=== PATIENT | male | born 1945 | race African-American/Black ===

== ENCOUNTER 2016-05-26 04:09 | Inpatient (IN) | payer MEDICARE, OTHER ==
--- NOTE | ~2016-05-26 | CN ---
Consultation Report [facility] [address] [place]. [address] NAME: LAURYN BRYAN : 43 STATUS : DIS IN PAT#: [id number] AGE: 70 ADM/REG DATE : 05/26/16 MR#: [id number] REPORT SERV DATE: 05/26/16 DICTATED BY: GILBERTO DEMPSEY DATE: 05/26/16 REPORT STATUS : Draft TRANSCRIBED BY: MODL DATE: 05/26/16 CARDIOVASCULAR CONSULTATION DATE OF CONSULTATION: 05/26/2016 INDICATION: Dyspnea and elevated troponin. HISTORY OF PRESENT ILLNESS: Mr. Bryan is a 70-year-old man with a history of morbid obesity and end-stage renal disease, on hemodialysis. He has a history of chronic diastolic congestive heart failure. He has had several admissions over the last few months for symptoms of dyspnea. Over the last week, his dyspnea has worsened and today he developed weakness and a cold sweat while taking a shower. He presented to the emergency room where he was found to be hypotensive with systolic blood pressures 80/60. He was admitted to the Medical Intensive Care Unit where he is currently on supplemental oxygen and IV Levophed for blood pressure support. I reviewed an echocardiogram in person performed this afternoon, which demonstrated a severely dilated RV and preservation of the RV apex consistent with Corea sign, which is suggestive of an acute pulmonary embolus. In reviewing echo images from March of 2016, RV enlargement and global systolic dysfunction is new. LV systolic function is preserved. There is moderate concentric left ventricular hypertrophy. PAST MEDICAL HISTORY: 1. End-stage renal disease, on hemodialysis. 2. Chronic diastolic congestive heart failure. 3. Obstructive sleep apnea. SOCIAL HISTORY: He does not smoke or drink alcohol. FAMILY HISTORY: There is no family history of early coronary artery disease. REVIEW OF SYSTEMS: A complete review of systems was obtained, which is negative in detail except as mentioned above in the HPI. PHYSICAL EXAMINATION: VITAL SIGNS: Blood pressure 80/60, heart rate of 120, respiratory rate of 22. GENERAL: Comfortable in no acute distress. HEENT: Anicteric. No xanthelasma. Lips without cyanosis. NECK: No JVD. Carotids 2+ and symmetric. No carotid bruits. LUNGS: CTA bilaterally. No wheezes or rhonchi. No accessory muscle use. COR: Tachycardic. Normal S1 and S2. ABD: Soft, nontender, nondistended. Normal bowel sounds. No abdominal bruits. EXT: No clubbing, cyanosis or edema 2+ and symmetric distal pulses. Consultation Report [place] [address] [place]. [address] NAME: LAURYN BRYAN : 43 STATUS : DIS IN PAT#: [id number] AGE: 70 ADM/REG DATE : 05/26/16 MR#: [id number] REPORT SERV DATE: 05/26/16 DICTATED BY: GILBERTO DEMPSEY DATE: 05/26/16 REPORT STATUS : Draft TRANSCRIBED BY: AMADOU DATE: 05/26/16 SKIN: Warm. Dry. No venous stasis changes. MS: No kyphosis. NEURO/PSYCH: Oriented x3. No anxiety or depression. LABORATORY STUDIES: Potassium of 5.0 and creatinine of 11. Hematocrit of 39.8. I reviewed his echocardiogram as described above. Troponin 0.73 and 1.29. EKG: A 12-lead EKG shows sinus tachycardia. Mild ST depressions are noted in the lateral precordial leads. Mild ST elevation is noted approximately 1 mm in V1 only. IMPRESSION: This is a 70-year-old patient on hemodialysis for end-stage renal disease who presents with worsening symptoms of dyspnea and in particular hypotension today. His echocardiogram is consistent with an acute pulmonary embolus with evidence of severe RV enlargement, severe RV systolic dysfunction, and preservation of RV function at the apex consistent with Corea sign. The patient is currently being attended to by the Critical Care Medicine Team. Plans are for intubation and CT scan of the chest. Possible lytics are being planned for likely acute pulmonary embolus. GINO/AMADOU Gilberto Dempsey M.D. / [id number] CC: Mao Hicks MD
--- NOTE | ~2016-05-26 | HP ---
History And Physical [place] [id number] [place]. [address] NAME: LAURYN BRYAN : 44 STATUS : ADM IN [facility]#: [id number] AGE: 70 ADM/REG DATE : 05/26/16 MR#: [id number] REPORT SERV DATE: 05/26/16 DICTATED BY: ADI العراقي DATE: 05/26/16 REPORT STATUS : Draft TRANSCRIBED BY: MODCharanjit DATE: 05/26/16 DATE OF ADMISSION: 05/26/2016 CHIEF COMPLAINT: Acute on chronic hypotension. HISTORY OF PRESENT ILLNESS: The patient is a 70-year-old male with significant past medical history of chronic hypotension, presented with generalized weakness and lightheadedness in the setting of acute on chronic hypotension. The patient has had two similar presentations in 01/2016. The patient states at that time he does dialysis on Mondays, Wednesdays, and Fridays. Reviewing his dialysis pressures on 05/24/2016, he was noted to have systolic blood pressures in the 140s to 180s. The patient is on midodrine 10 mg p.o. t.i.d. The patient stated that he takes his midodrine on a twice a day basis. He states he takes the equivalent of 30 mg in one day. The patient states last night he started getting weak and lightheaded. He went to the bathroom and threw up. There is a question if there are any coffee-grounds. His hemoglobin is noted to be 13. He denies any bright red blood per rectum or black stools or abdominal pain. The patient denies any loss of consciousness, chest pain, palpitations, shortness of breath, nausea, vomiting, or diarrhea. He denies any fevers, chills, upper respiratory infection, or lower respiratory infection symptoms. He does not have any wounds or rash. The patient denies any chest pain, palpitations, or shortness of breath. He is not on any vasodilators in reviewing his medication. He does have a past medical history of sleep apnea. The patient was found on presentation to have systolic blood pressures in the 60s, placed on Levophed, and his systolic blood pressures are currently in the 90s. His dry weight is approximately 128 to 129 kg. He is noted to have a weight of 130 kg upon presentation. Chest x-ray showed no infiltrates, effusions, or pneumothorax. Troponin is 0.73. LFTs and total bilirubin are within normal limits. Bicarb CO2 on his BNP was 24. BUN and creatinine are 51 and 11.1. Calcium is 9.6. The patient does not have a history of hypothyroidism. The patient has had echoes on his previous admissions that showed normal ejection fraction. No pericardial effusion. EKG shows sinus tachycardia. PAST MEDICAL/PAST SURGICAL HISTORY: 1. End-stage renal disease, on Mondays, Wednesdays, and Fridays of DCI moderately. 2. Chronic hypotension, on midodrine. 3. Right lower lobe consolidation with a biopsy completed in 03/2016, which revealed just calcification without a malignancy. 4. Chronic diastolic CHF. 5. Venous insufficiency. 6. Gout. 7. Toe infection. 8. Sleep apnea. 9. Restrictive lung disease?.. SOCIAL HISTORY: He is . No tobacco, alcohol, or drugs. FAMILY MEDICAL HISTORY: No known kidney disease. History And Physical [address] [address] NAME: LAURYN BRYAN : 44 STATUS : ADM IN [facility]#: [id number] AGE: 70 ADM/REG DATE : 05/26/16 MR#: [id number] REPORT SERV DATE: 05/26/16 DICTATED BY: ADI العراقي DATE: 05/26/16 REPORT STATUS : Draft TRANSCRIBED BY: AMADOU DATE: 05/26/16 REVIEW OF SYSTEMS: Complete review of systems is negative, otherwise as stated in the HPI. HOME MEDICATIONS: Reviewed. 1. Allopurinol 100 mg daily. 2. Lipitor 20 mg daily. 3. Multivitamin. 4. Gabapentin 600 mg t.i.d. 5. Hydroxyzine. 6. Fosrenol 1000 mg two tablets t.i.d. with meals. 7. Midodrine 5 mg t.i.d. 8. Lortab 5/325 mg p.o. q.6 hours. 9. Trazodone. PHYSICAL EXAMINATION: VITAL SIGNS: Temperature is 97.8, pulse is in the 100s, blood pressure is in the 90s, on Levophed drip 6 mcg/min. GENERAL: He is in no apparent distress. PSYCHIATRIC: Appropriate mood and affect. NEUROLOGIC: He is alert and oriented x3. Gross motor intact. SKIN: No petechiae or purpura. NECK: No JVP. Trachea is midline. No lymphadenopathy. CARDIOVASCULAR: Regular rate and rhythm. No gallops, rubs, or murmurs appreciated. RESPIRATORY: Clear to auscultation bilaterally. ABDOMEN: Soft, nontender, nondistended. EXTREMITIES: No peripheral edema. VASCULAR: +2 radial pulses bilaterally. LABORATORY DATA: Sodium is 142, potassium is 5.0, chloride is 101, bicarb is 24, BUN is 51, creatinine is 11.1, albumin is 2.9, calcium is 9.6, total bilirubin 0.5, alkaline phosphatase 121, AST is 44, ALT is 70, troponin is 0.73. White blood cell count is 10.3, hemoglobin is 13, and platelets are 132. IMAGING: Echocardiogram in 01/2016 showed an ejection fraction of 60%. Chest x-ray on 05/26/2016, no infiltrates, no effusions, no pneumothorax. ASSESSMENT: 1. Acute on chronic hypotension of unclear etiology. Structural heart disease needs to be a concern even though the patient has had echocardiogram completed in the past, which has not shown any evidence of valvular disease, pericardial effusion, or decreased left ventricular ejection fraction. Adrenal insufficiency, amyloidosis, and pulmonary embolism are within the differential diagnosis. Occult sepsis may be a possible etiology. The patient does not appear hypovolemic. He does not have a known past medical history of cirrhosis. 2. Chronic diastolic congestive heart failure. 3. End-stage renal disease. History And Physical [address] [address] NAME: LAURYN BRYAN : 44 STATUS : ADM IN [facility]#: [id number] AGE: 70 ADM/REG DATE : 05/26/16 MR#: [id number] REPORT SERV DATE: 05/26/16 DICTATED BY: ADI العراقي DATE: 05/26/16 REPORT STATUS : Draft TRANSCRIBED BY: AMADOU DATE: 05/26/16 PLAN: 1. Labs to evaluate for adrenal insufficiency, amyloidosis, and myocardial infarction. 2. Echocardiogram to evaluate for structural heart disease. 3. Telemetry to monitor cardiac arrhythmia. 4. He has a lower extremity ultrasound to evaluate for DVT. 5. Right upper quadrant abdominal ultrasound to evaluate for cirrhosis. 6. Continue midodrine. 7. Continue Levophed. 8. Give vancomycin and Levaquin prophylactically. Followup blood cultures. Imaging to see if occult sepsis arise. 9. Hemodialysis is planned for tomorrow. SGG/MODL Adi العراقي M.D. / [id number] CC: Mao Hicks MD NO PCP
--- NOTE | ~2016-05-26 | DS ---
Discharge Summary [facility] [address] [place]. [address] NAME: LAURYN BRYAN : 43 STATUS : DIS IN PAT#: [id number] AGE: 70 ADM/REG DATE : 05/26/16 MR#: [id number] REPORT SERV DATE: 05/27/16 DICTATED BY: ADI VIRGEN DATE: 05/26/16 REPORT STATUS : Draft TRANSCRIBED BY: MODL DATE: 05/26/16 ADMISSION DATE: 05/26/2016 DISCHARGE DATE: 05/26/2016 DISCHARGE DIAGNOSES: 1. Suspected severe acute pulmonary embolism. 2. Acute on chronic hypotension. 3. History of chronic diastolic congestive heart failure. 4. End-stage renal disease. CONSULTATIONS: Critical Care, Dr. Clyde Wu. PROCEDURES: 1. Intubation for mechanical ventilation. 2. Echocardiogram completed on 05/26/2016 that revealed an estimated LV ejection fraction of 65% with moderate concentric LVH, mild to moderate RV enlargement with decreased systolic function. There is a hyperdynamic apex considered for pulmonary embolism on the differential. Aortic valvular sclerosis without stenosis and moderate pulmonary hypertension with RVSP of 50 mmHg. When compared to the previous echocardiogram completed on 04/07/2016 RV was now dilated which was from the new clinical feature. HISTORY OF PRESENT ILLNESS: The patient is a 70-year-old male with significant past medical history of chronic hypertension, JENNIFER, end-stage renal disease, presented with generalized weakness and lightheadedness in the setting of acute on chronic hypotension. The patient is noted to be on midodrine as an outpatient. The patient was noted to have blood pressures in the 60s to 80s on presentation to the emergency department. He was started on Levophed drip. Systolic blood pressures improved into the 90s. HOSPITAL COURSE: The patient was admitted for acute on chronic hypotension with concerns of possible structural heart disease, adrenal insufficiency, pulmonary embolism, and amyloidosis. Stat echocardiogram was obtained with results noted above. Critical Care was consulted. The patient was to be intubated and placed on mechanical ventilation to be transported to CT scan for evaluation and management of a strongly suspected acute pulmonary embolism. The patient was placed on a heparin drip. In order to determine the need for vascular intervention of a pulmonary embolus in the CTA had to be completed first. Unfortunately, shortly after being intubated the patient went into PEA arrest. He was coded for approximately 45 minutes. He was given tPA during the code due to our concerns of severe acute pulmonary embolism. Unfortunately, the patient did not survive this significant event. The family was called during the code, was reportedly asleep by staff. I was able to contact the daughter who informed the family who presented near to the end of this code. Family was informed and sympathies expressed due to his loss. GEORGETTE/AMADOU Discharge Summary [address] [place]. [address] NAME: LAURYN BRYAN : 43 STATUS : DIS IN PAT#: [id number] AGE: 70 ADM/REG DATE : 05/26/16 MR#: [id number] REPORT SERV DATE: 05/27/16 DICTATED BY: ADI VIRGEN DATE: 05/26/16 REPORT STATUS : Draft TRANSCRIBED BY: AMADOU DATE: 05/26/16 Adi Virgen M.D. / [id number] CC: Mao Hicks MD
--- NOTE | ~2016-05-26 | OP ---
Record Of Operation [facility] [address] [place]. [address] NAME: LAURYN BRYAN : 43 STATUS : DIS IN PAT#: [id number] AGE: 70 ADM/REG DATE : 05/26/16 MR#: [id number] REPORT SERV DATE: 05/26/16 DICTATED BY: TYLER WU DATE: 05/26/16 REPORT STATUS : Draft TRANSCRIBED BY: MODL DATE: 05/26/16 DATE OF PROCEDURE: PROCEDURE: Intubation. INDICATION: Respiratory distress. DESCRIPTION OF PROCEDURE: Pre-oxygenated with 100% oxygen and monitored by blood pressure, oximetry, 20 mg of etomidate, use #8 endotracheal tube placed under direct laryngoscope vision to 22 cm. Tube seen to enter between cords. Confirmed by end-tidal CO2 monitor. Good breath sounds bilaterally. Sat 100%, post chest x-ray will be obtained. MIHAELA/AMADOU Tyler Wu M.D. / [id number] CC: Mao Hicks MD
--- NOTE | ~2016-05-26 | CN ---
Consultation Report [facility] [address] [place]. [address] NAME: LAURYN BRYAN : 43 STATUS : DIS IN PAT#: [id number] AGE: 70 ADM/REG DATE : 05/26/16 MR#: [id number] REPORT SERV DATE: 05/29/16 DICTATED BY: TYLER WU DATE: 05/26/16 REPORT STATUS : Draft TRANSCRIBED BY: MODL DATE: 05/26/16 CONSULTATION DATE OF CONSULTATION: 05/26/2016 TIME: 1415 hours. Seen in Medical ICU, bed number 11. HISTORY OF PRESENT ILLNESS: Mr. Bryan is a 70-year-old white male with significant past history including chronic end-stage renal disease, on dialysis. He has a history of chronic hypotension for which he takes midodrine. He presents with generalized weakness and lightheadedness in the setting of acute on chronic hypotension. The patient had similar episodes apparently last year in January. The patient takes midodrine 10 mg p.o. t.i.d. He reported to Dr. Virgen, that the night before admission, he began getting weak and lightheaded. He went to the bathroom and threw up. Hemoglobin was 13. He denies any bright red bleeding or black stools. No loss of consciousness. No chest pain or palpitation, shortness of breath or diarrhea. Denies fever, chills, or respiratory issues. No chest pain. He does have a past medical history of sleep apnea. He had required Levophed on entry because of his hypotension. His dry weight in past was 120 kilos. BUN and creatinine are 51 and 11. His bicarb is 24 on his BMP. History of hypothyroidism in past. PAST MEDICAL HISTORY: End-stage renal disease with three times a week dialysis; chronic hypotension, on midodrine, right lower lobe consolidation, biopsy in 2017 revealed calcification without malignancy; chronic diastolic heart failure; venous insufficiency; gout; toe infection; sleep apnea; restrictive lung disease. He is . No children. No known prior kidney disease. HOME MEDICATIONS: Include allopurinol 100 daily, Lipitor 20, multivitamin, Neurontin 600 t.i.d., hydroxyzine, Fosrenol 1000 mg t.i.d. with tablets midodrine 5 t.i.d., Lortab 5/325, trazodone. PHYSICAL EXAMINATION: VITAL SIGNS: On examination, his pressures is about 120/70, on Levophed, this is weight- based. His saturation was 89 to 92, heart rate was 140. GENERAL: The patient is awake, but using accessory muscles of respiration. He is responsive. HEENT: Head was normocephalic. Sclerae and conjunctivae are clear. NECK: Supple. CHEST: Decreased breath sounds bilaterally. CARDIAC: S1, S2. Tachycardic. ABDOMEN: Slightly distended, nontender. No masses or organomegaly. EXTREMITIES: 2+ to 3+ edema. The pulses are palpable. Consultation Report [place] [id number] [place]. [address] NAME: LAURYN BRYAN : 43 STATUS : DIS IN PAT#: [id number] AGE: 70 ADM/REG DATE : 05/26/16 MR#: [id number] REPORT SERV DATE: 05/29/16 DICTATED BY: TYLER WU DATE: 05/26/16 REPORT STATUS : Draft TRANSCRIBED BY: AMADOU DATE: 05/26/16 The patient had an echocardiogram done that showed Corea sign. Also, he has a dilated RV which was a change from his previous echo in March this year. Chronic diastolic heart failure, end-stage renal disease. Concern for pulmonary embolism is present. PLAN: He will require intubation before he goes to CTA. We plan to intubate while he's awake, pressor agents for CTA. RP/AMADOU Tyler Wu M.D. / [id number] CC: Mao Hicks MD
[2016-05-26 03:48] LABS: CALCIUM, SERUM 9.6 MG/DL (8.5-10.4); CHLORIDE, SERUM 101 MMOL/L (96-112); CO2 (CARBON DIOXIDE) 24 MMOL/L (24-34); SGPT(ALT) 30 U/L (5-65); SODIUM, SERUM 142 MMOL/L (135-148); TOTAL BILIRUBIN 0.5 MG/DL (0-1.2); TOTAL PROTEIN 7.5 G/DL (6.0-8.5)
[2016-05-26 03:50] LABS: A/G RATIO 0.6 (0.7-1.9); ALBUMIN 2.9 G/DL (3.5-5.0); ALKALINE PHOSPHATASE 121 U/L (45-117); BUN (BLOOD UREA NITROGEN) 51 MG/DL (6-23); GFR AFRICAN AMERICAN 5 ML/MIN (>=60); GFR NON AFRICAN AMERICAN 4 ML/MIN (>=60); GLOBULIN 4.6 G/DL (2.5-4.1); GLUCOSE, SERUM 151 MG/DL (60-99); SGOT(AST) 44 U/L (5-40); TROPONIN I 0.73 NG/ML (<0.05)
[~2016-05-26 04:09] MED LIST: *UNABLE1; ANTIBIOTIC; ASAB; BIST PO; CLARIT10 PO; DIALYVITE PO; DID NOT BRING LIST; DSS PO; EMLA TOP; ENDOCET1 TA1 PO; FOSRENOL1000 MG PO; HALF81 PO; LIPITOR10 PO; NEPHRO-VITE PO; NEUR100 PO; NORCO1 TA1 PO; PCET PO; PERCOCET1 TA2 PO; PROAMAT5 PO; REFRESH OPH SO0.3 ML OPH; SENTAB PO; TEARS PLUS OPH; TRAZ50 PO; Z100 PO
[2016-05-26 05:40] LABS: BASOPHILS 0.1 %; BASOPHILS ABSOLUTE 0.01 10/3/uL (0.0-0.16); EOSINOPHILS 0.4 %; EOSINOPHILS ABSOLUTE 0.04 10/3/uL (0.0-0.53); IMMATURE GRANULOCYTES 0.5 %; IMMATURE GRANULOCYTES ABSOLUTE 0.05 10/3/uL (0.0-0.11); LYMPHOCYTES ABSOLUTE 1.75 10/3/uL (0.67-4.30); MEAN CORPUS HGB CONC 32.7 g/dL (32.0-36.0); MEAN CORPUSCULAR HEMOGLOB 35.8 pg (26.0-34.0); MEAN PLATELET VOLUME 10.4 fL (9.2-13.0); MONOCYTES 6.6 %; MONOCYTES ABSOLUTE 0.68 10/3/uL (0.21-1.20); NEUTROPHILS 75.4 %; NEUTROPHILS ABSOLUTE 7.77 10/3/uL (2.02-8.40); RBC DISTRIBUTION WIDTH 15.5 % (12.0-16.0)
[2016-05-26 05:59] LABS: LACTATE 2.9 MMOL/L (0.3-2.4)
[2016-05-26 06:24] LABS: INTERNATIONAL NORMAL RATI 1.1 UNITS (-); PARTIAL THROMBO TIME 28.6 SEC (22.5-37.2); PROTIME (NOT ORD) 14.2 SEC (12.0-14.5)
[2016-05-26 06:27] LABS: WHITE BLOOD CELLS 10.3 10/3/uL (4.5-10.5)
[2016-05-26 06:28] LABS: ER CBC TAT 0 Hrs 56 Mins; HEMATOCRIT 39.8 % (40.0-51.0); MANUAL DIFF NO %; MEAN CORPUSCULAR VOLUME 109.6 fL (80-100); PLATELET COUNT 132 10/3/uL (150-400); RED CELL COUNT 3.63 10/6/uL (4.7-6.1)
[2016-05-26 09:46] LABS: TROPONIN I 1.29 NG/ML (<0.05)
[2016-05-26 11:25] LABS: T PROTEIN (ELECT)(NOT OR 6.8 G/DL (6.0-8.5)
[2016-05-26 11:27] LABS: FREE T4 1.12 NG/DL (0.76-1.46); ULTRASENSITIVE TSH 1.39 MCIU/ML (0.358-3.740)
[2016-05-26 14:10] LABS: ALLENS TEST Pos; BE (BASE EXCESS) -7.2 MEQ/L (0 +/- 2.5); CARBOXYHEMOGLOBIN 0.9 % (0-3); DEVICE Nasal Cannula @3.5l; HEMOBLOGIN CONTENT 13.8 G/DL (14-18); INSTRUMENT SERIAL # 8083; METHEMOGLOBIN 0.1 % (0-3); O2 CONTENT 16.9 VOL% (18-24); PCO2 (CO2 TENSION) 31 MMHG (35-45); PO2 (O2 TENSION) 62 MMHG (79-93); SAMPLE Arterial; pH 7.36 (7.37-7.43)
[2016-05-29 06:29] LABS: KAPPA FLC 24.3 mg/dL (0.33-1.94); KAPPA LAMBDA FLC RATIO 0.77 (0.26-1.65); LAMBDA FLC 31.4 mg/dL (0.57-2.63)
[2016-05-29 10:05] LABS: ABNORMAL PEAK 1 0.42 G/DL; ABNORMAL PEAK 1 % 6.3 % (0); ALB RELATIVE % 50.1 % (60.0-89.0); ALBUMIN (ELECTRO) 3.41 GM/DL (3.2-5.5); ALPHA 1 (ELECTRO) 0.34 GM/DL (0.1-0.4); ALPHA 2 (ELECTRO) 0.87 GM/DL (0.5-1.10); ALPHA 2 RELAT % 12.8 % (4.5-26.0); BETA GLOBULIN (SPE) 0.88 GM/DL (0.60-1.30); GAMMA RELAT % 19.1 % (6.0-22.0)
== END 2016-05-26 14:30 | disposition expired | DRG 208 ==
LOC: ER 04:09 → MIC 05:54
PROVIDERS: Internal Medicine Nephrology; Specialist
PROC: 5A1935Z Respiratory Ventilation, Less than 24 Consecutive Hours (ICD-10-PCS; principal; 2016-05-26)
PROC: 0BH17EZ Insertion of Endotracheal Airway into Trachea, Via Natural or Artificial Opening (ICD-10-PCS; 2016-05-26)
PROC: B246ZZZ Ultrasonography of Right and Left Heart (ICD-10-PCS; 2016-05-26)
DX: I26.99 Other pulmonary embolism without acute cor pulmonale (principal); J96.01 Acute respiratory failure with hypoxia; I95.89 Other hypotension; N18.6 End stage renal disease; I50.32 Chronic diastolic (congestive) heart failure; Z99.2 Dependence on renal dialysis; I87.2 Venous insufficiency (chronic) (peripheral); M10.9 Gout, unspecified; Z79.899 Other long term (current) drug therapy; G47.33 Obstructive sleep apnea (adult) (pediatric); I27.2 Other secondary pulmonary hypertension
CPT/HCPCS: 36600; 71010; 76705; 80053; 82533; 82805; 83605; 83883; 83883-59; 84145; 84155; 84165; 84439; 84443; 84484; 85025; 85610; 85730; 86334; 87040; 87641; 92950; 93005; 94002; 94640; 96374; 99291; A9270-GY; C1894; C8929; J0834; J1956; J2370; J2405; J2997; J3370; Q9957